=== PATIENT | female | born 1950 ===

== ENCOUNTER 2022-08-19 14:23 | Emergency (ER) | payer OTHER, MEDICARE ==
[2022-08-19] MEDS ORDERED: Lidocaine/Epineph/Tetracaine 3 ML Syringe TOP ONE (16:35)
[2022-08-19] MEDS ORDERED: Ibuprofen 400 MG Tab PO ONE (16:36)
[2022-08-19] MEDS ORDERED: Acetaminophen 325 MG Tab PO ONE (16:36)
[2022-08-19] MEDS ORDERED: Diphtheria,Pertussis(Acell),Tetanus Vaccine 0.5 ML Syringe IM ONE (16:36)
[2022-08-19] MEDS ORDERED: Bacitracin Oint 1 GM U/D Packet ONE (18:00)
== END 2022-08-19 18:43 | disposition home or self-care (01) ==
LOC: MW.ED 14:23
DX: S51.812A Laceration without foreign body of left forearm, initial encounter (principal); E03.9 Hypothyroidism, unspecified; E66.9 Obesity, unspecified; Z68.31 Body mass index [BMI] 31.0-31.9, adult; Z23 Encounter for immunization; Z79.899 Other long term (current) drug therapy; Z88.5 Allergy status to narcotic agent; Z91.040 Latex allergy status; Z91.048 Other nonmedicinal substance allergy status; W26.0XXA Contact with knife, initial encounter
CPT/HCPCS: 12002; 90471; 90715; 99283; A9270

== ENCOUNTER 2022-08-27 08:11 | Emergency (ER) | payer OTHER, MEDICARE | END 2022-08-27 08:20 | disposition left against medical advice (07) | LOC: MW.ED 08:11 | DX: S51.812D Laceration without foreign body of left forearm, subsequent encounter (principal); Z48.02 Encounter for removal of sutures; W26.8XXD Contact with other sharp object(s), not elsewhere classified, subsequent encounter | CPT/HCPCS: 99281 ==